=== PATIENT | female | born 1985 | race American Indian/Alaskan Native ===

== ENCOUNTER 2020-03-22 23:44 | Emergency (ER) | payer SELFPAY ==
[2020-03-22 23:54] VITALS: BP 120/74
[2020-03-23 00:55] LABS: Basophils % (Auto) 0.5 % (0.0-1.8); Eosinophils # (Auto) 0.1 K/mm3 (0.0-0.4); Eosinophils % (Auto) 1.6 % (0.0-4.3); Hematocrit 36.1 % (30.3-42.9); Hemoglobin 11.7 gm/dl (10.1-14.3); Lymphocytes # (Auto) 2.2 K/mm3 (1.2-5.4); Lymphocytes % (Auto) 47.5 % (13.4-35.0); Mean Corpuscular HGB Conc 32 % (30-34); Monocytes # (Auto) 0.5 K/mm3 (0.0-0.8); Monocytes % (Auto) 9.8 % (0.0-7.3); Platelet Count 245 K/mm3 (140-440); Red Blood Count 5.51 M/mm3 (3.65-5.03); Red Cell Distribution Width 15.6 % (13.2-15.2)
[2020-03-23 01:08] LABS: Mean Corpuscular Volume 66 fl (79-97)
[2020-03-23 01:16] LABS: Alanine Aminotransferase 14 units/L (7-56); Albumin 4.3 g/dL (3.9-5); BUN/Creatinine Ratio 12; Blood Urea Nitrogen 12 mg/dL (7-17); Hemolysis Index 3
[2020-03-23 01:43] LABS: Bacteria,Urine 1+ /HPF (Negative); Bilirubin,Urine NEG (Negative); Blood,Urine NEG (Negative); Color,Urine Yellow (Yellow); Mucus,Urine FEW /HPF; Protein,Urine <15 mg/dL mg/dL (Negative)
--- NOTE | 2020-03-23 04:01 | Emergency Department Report ---
ED General Adult HPI - General Chief complaint: Dizziness Stated complaint: WEAKNESS/DIZZINESS Source: patient Mode of arrival: Ambulatory Limitations: No Limitations - History of Present Illness Initial comments: Patient is a 35-year-old -[place] female with a history of chronic anxiety who presents to the ED with complaint of acute onset intermittent lightheadedness, dry throat, chest tightness and tingling sensation diffusely for the last 8 hours intermittently. Patient states that she has had the symptoms on and off for the last 3 months and that she has never been diagnosed officially with anxiety. Patient states that the throat dryness but gets better when she drinks water. Patient denies chest pain, shortness of breath, dizziness, syncope, headache, fever, chills, cough, nausea, vomiting, diarrhea, seizures, change in vision, vaginal bleeding or abdominal pain. MD Complaint: anxiety, lightheadedness -: Gradual, month(s) (3) Location: head, chest Radiation: non-radiation Severity scale (0 -10): 0 Quality: dull Consistency: intermittent Improves with: none Worsens with: none Associated Symptoms: denies other symptoms, loss of appetite, malaise, shortness of breath, other (Chest tightness, lightheadedness). denies: confusion, chest pain, cough, diaphoresis, fever/chills, headaches, nausea/vomiting, rash, seizure Treatments Prior to Arrival: none - Related Data Previous Rx's Medication Instructions Recorded Last Taken Type Butalb/Acetamin/Caff 50-325-40 1 tab PO Q6HR PRN #12 tab 08/17/18 Unknown Rx [Fioricet] Sulfamethoxazole/Trimethoprim 1 each PO BID #14 tablet 08/17/18 Unknown Rx [Bactrim DS TAB] hydrOXYzine PAMOATE [Vistaril] 25 mg PO Q8HR PRN #30 capsule 03/23/20 Unknown Rx Allergies Allergy/AdvReac Type Severity Reaction Status Date / Time No Known Allergies Allergy Verified 08/16/18 23:05 ED Review of Systems ROS: Stated complaint: WEAKNESS/DIZZINESS Other details as noted in HPI Constitutional: malaise. denies: chills, fever Eyes: denies: eye pain, eye discharge, vision change ENT: other. denies: ear pain, throat pain Respiratory: shortness of breath. denies: cough, wheezing Cardiovascular: chest pain (Chest tightness). denies: palpitations Endocrine: no symptoms reported Gastrointestinal: denies: abdominal pain, nausea, vomiting, diarrhea Genitourinary: denies: urgency, dysuria, discharge Musculoskeletal: myalgia, other (Diffuse musculoskeletal tingling sensations). denies: back pain, joint swelling, arthralgia Skin: denies: rash, lesions Neurological: other (Lightheadedness). denies: headache, weakness, paresthesias Psychiatric: anxiety. denies: depression Hematological/Lymphatic: denies: easy bleeding, easy bruising ED Past Medical Hx - Past Medical History Hx Psychiatric Treatment: Yes (Anxiety) - Surgical History Additional Surgical History: x5 - Social History Smoking Status: Never Smoker Substance Use Type: None - Medications Home Medications: Home Medications Medication Instructions Recorded Confirmed Last Taken Type Butalb/Acetamin/Caff 50-325-40 1 tab PO Q6HR PRN #12 tab 08/17/18 Unknown Rx [Fioricet] Sulfamethoxazole/Trimethoprim 1 each PO BID #14 tablet 08/17/18 Unknown Rx [Bactrim DS TAB] hydrOXYzine PAMOATE [Vistaril] 25 mg PO Q8HR PRN #30 capsule 03/23/20 Unknown Rx ED Physical Exam - General Limitations: No Limitations General appearance: alert, in no apparent distress - Head Head exam: Present: atraumatic, normocephalic, normal inspection - Eye Eye exam: Present: normal appearance, PERRL, EOMI Pupils: Present: normal accommodation - ENT ENT exam: Present: normal exam, normal orophraynx, mucous membranes moist, TM's normal bilaterally, normal external ear exam - Neck Neck exam: Present: normal inspection, full ROM - Respiratory Respiratory exam: Present: normal lung sounds bilaterally. Absent: respiratory distress, wheezes, chest wall tenderness, accessory muscle use, decreased breath sounds, prolonged expiratory - Cardiovascular Cardiovascular Exam: Present: regular rate, normal rhythm, normal heart sounds. Absent: systolic murmur, diastolic murmur, rubs, gallop - GI/Abdominal GI/Abdominal exam: Present: soft, normal bowel sounds. Absent: tenderness, guarding, hyperactive bowel sounds, hypoactive bowel sounds, organomegaly - Extremities Exam Extremities exam: Present: normal inspection, full ROM, normal capillary refill - Back Exam Back exam: Present: normal inspection, full ROM. Absent: tenderness, CVA tenderness (L), muscle spasm, paraspinal tenderness, vertebral tenderness - Neurological Exam Neurological exam: Present: alert, oriented X3, CN II-XII intact, normal gait, reflexes normal - Psychiatric Psychiatric exam: Present: normal affect, normal mood, anxious - Skin Skin exam: Present: warm, dry, intact, normal color. Absent: rash ED Course Vital Signs 03/22/20 23:54 Temperature 98.3 F Pulse Rate 75 Respiratory 20 Rate Blood Pressure 120/74 O2 Sat by Pulse 100 Oximetry ED Medical Decision Making - Lab Data Result diagrams: 03/23/20 00:28 03/23/20 00:28 - Medical Decision Making This is a 35-year-old -[place] female with a history of chronic anxiety who presents to the ED with complaint of acute onset intermittent lightheadedness, dry throat, chest tightness and tingling sensation diffusely for the last 8 hours intermittently. Patient states that she has had the symptoms on and off for the last 3 months and that she has never been diagnosed officially with anxiety. Patient states that the throat dryness but gets better when she drinks water. In the ED, patient is alert and oriented x3 and is not in distress. Lab test results were reviewed and are all nonactionable. Based on the history and physical exam findings, and test results, patient symptoms a re likely due to panic attack and anxiety. Patient was discharged home on medications for anxiety and advised to return to the ED immediately if symptoms get worse, otherwise follow-up with her primary care physician in 7 to 10 days for reevaluation. - Differential Diagnosis anxiety; dehydration; panic attack Critical care attestation.: If time is entered above; I have spent that time in minutes in the direct care of this critically ill patient, excluding procedure time. ED Disposition Clinical Impression: Anxiety as acute reaction to exceptional stress Disposition: DC-01 TO HOME OR SELFCARE Is pt being admited?: No Does the pt Need Aspirin: No Condition: Stable Instructions: Generalized Anxiety Disorder (ED) Additional Instructions: Your symptoms are likely due to acute anxiety. Therefore take medication with food, drink plenty of fluids and follow-up with your primary care physician in 7 to 10 days for reevaluation. Return to the ED immediately if symptoms get worse. Prescriptions: hydrOXYzine PAMOATE [Vistaril] 25 mg PO Q8HR PRN #30 capsule PRN Reason: Anxiety Referrals: [facility] [Provider Group] - 3-5 Days Time of Disposition: 04:03 Print Language: CITIZEN OF [place]
== END 2020-03-23 04:10 | disposition home or self-care (01) ==
LOC: ED 23:44
DX: F41.9 Anxiety disorder, unspecified (principal)
CPT/HCPCS: 36415; 80053; 81001; 84703; 85025; 99283

== ENCOUNTER 2020-06-08 19:14 | Emergency (ER) | payer SELFPAY ==
[2020-06-08 20:05] VITALS: BP 110/68
--- NOTE | 2020-06-08 23:00 | Emergency Department Report ---
ED General Adult HPI - General Chief complaint: Extremity Injury, Upper Stated complaint: ARM TIGHTNESS THROAT PROBLEM Time Seen by Provider: 06/08/20 22:23 Source: patient Mode of arrival: Ambulatory Limitations: No Limitations - Related Data Previous Rx's Medication Instructions Recorded Last Taken Type Butalb/Acetamin/Caff 50-325-40 1 tab PO Q6HR PRN #12 tab 08/17/18 Unknown Rx [Fioricet] Sulfamethoxazole/Trimethoprim 1 each PO BID #14 tablet 08/17/18 Unknown Rx [Bactrim DS TAB] hydrOXYzine PAMOATE [Vistaril] 25 mg PO Q8HR PRN #30 capsule 03/23/20 Unknown Rx Allergies Allergy/AdvReac Type Severity Reaction Status Date / Time No Known Allergies Allergy Verified 08/16/18 23:05 ED Review of Systems ROS: Stated complaint: ARM TIGHTNESS THROAT PROBLEM Other details as noted in HPI ED Past Medical Hx - Past Medical History Previous Medical History?: Yes Hx Psychiatric Treatment: Yes (Anxiety) - Surgical History Past Surgical History?: Yes Additional Surgical History: x5 - Social History Smoking Status: Never Smoker Substance Use Type: None - Medications Home Medications: Home Medications Medication Instructions Recorded Confirmed Last Taken Type Butalb/Acetamin/Caff 50-325-40 1 tab PO Q6HR PRN #12 tab 08/17/18 Unknown Rx [Fioricet] Sulfamethoxazole/Trimethoprim 1 each PO BID #14 tablet 08/17/18 Unknown Rx [Bactrim DS TAB] hydrOXYzine PAMOATE [Vistaril] 25 mg PO Q8HR PRN #30 capsule 03/23/20 Unknown Rx ED Physical Exam - General Limitations: No Limitations ED Course Vital Signs 06/08/20 19:53 Temperature 98.1 F Pulse Rate 67 Respiratory 16 Rate Blood Pressure 110/68 O2 Sat by Pulse 100 Oximetry Critical care attestation.: If time is entered above; I have spent that time in minutes in the direct care of this critically ill patient, excluding procedure time. ED Disposition Condition: Stable Referrals: PRIMARY CARE, [Primary Care Provider] - 3-5 Days
--- NOTE | 2020-06-08 23:17 | Emergency Department Report ---
ED General Adult HPI - General Chief complaint: Extremity Injury, Upper Stated complaint: ARM TIGHTNESS THROAT PROBLEM Time Seen by Provider: 06/08/20 22:23 Source: patient Mode of arrival: Ambulatory Limitations: No Limitations - History of Present Illness Initial comments: 35-year-old -[place] female patient presents with complaints of intermi ttent episodes of left arm tightness, throat tightness, and diffuse tingling sensation all over her body x 6 months. Patient states that the episodes last only a few minutes and normally occur when she gets home from work and is feeling overwhelmed. She denies any current symptoms, chest pain, dizziness, headache, vision changes, confusion, memory loss, difficulty with speech/ambulation, sore throat, cough, shortness of breath, leg pain/swelling, or fever/chills/sweats. Patient states these are the same symptoms she was seen for here in the ED 03/22/2020 and that the episodes are becoming more frequent and are concerning her. She states she was diagnosed with anxiety. She denies having followed up with a PCP. - Related Data Previous Rx's Medication Instructions Recorded Last Taken Type Butalb/Acetamin/Caff 50-325-40 1 tab PO Q6HR PRN #12 tab 08/17/18 Unknown Rx [Fioricet] Sulfamethoxazole/Trimethoprim 1 each PO BID #14 tablet 08/17/18 Unknown Rx [Bactrim DS TAB] hydrOXYzine PAMOATE [Vistaril] 25 mg PO Q8HR PRN #30 capsule 06/08/20 Unknown Rx Allergies Allergy/AdvReac Type Severity Reaction Status Date / Time No Known Allergies Allergy Verified 08/16/18 23:05 ED Review of Systems ROS: Stated complaint: ARM TIGHTNESS THROAT PROBLEM Other details as noted in HPI Constitutional: denies: chills, diaphoresis, fever, malaise, weakness ENT: denies: throat pain Respiratory: denies: cough, shortness of breath Cardiovascular: denies: chest pain, palpitations Endocrine: denies: excessive sweating, flushing Gastrointestinal: denies: abdominal pain Genitourinary: denies: urgency, dysuria, frequency, hematuria Musculoskeletal: denies: joint swelling Skin: denies: rash, lesions, change in color Neurological: denies: headache, abnormal gait Psychiatric: anxiety. denies: depression, auditory hallucinations, visual hallucinations ED Past Medical Hx - Past Medical History Previous Medical History?: Yes Hx Psychiatric Treatment: Yes (Anxiety) - Surgical History Past Surgical History?: Yes Additional Surgical History: x5 - Social History Smoking Status: Never Smoker Substance Use Type: None - Medications Home Medications: Home Medications Medication Instructions Recorded Confirmed Last Taken Type Butalb/Acetamin/Caff 50-325-40 1 tab PO Q6HR PRN #12 tab 08/17/18 Unknown Rx [Fioricet] Sulfamethoxazole/Trimethoprim 1 each PO BID #14 tablet 08/17/18 Unknown Rx [Bactrim DS TAB] hydrOXYzine PAMOATE [Vistaril] 25 mg PO Q8HR PRN #30 capsule 06/08/20 Unknown Rx ED Physical Exam - General Limitations: No Limitations General appearance: alert, in no apparent distress, obese - Head Head exam: Present: atraumatic, normocephalic - Eye Eye exam: Present: normal appearance. Absent: scleral icterus - ENT ENT exam: Present: normal orophraynx, mucous membranes moist - Neck Neck exam: Present: normal inspection - Respiratory Respiratory exam: Present: normal lung sounds bilaterally. Absent: respiratory distress, chest wall tenderness - Cardiovascular Cardiovascular Exam: Present: regular rate, normal rhythm. Absent: systolic murmur, diastolic murmur, rubs, gallop - GI/Abdominal GI/Abdominal exam: Present: soft. Absent: tenderness - Extremities Exam Extremities exam: Present: normal inspection, full ROM. Absent: joint swelling, calf tenderness - Back Exam Back exam: Present: normal inspection - Neurological Exam Neurological exam: Present: alert, oriented X3, normal gait - Psychiatric Psychiatric exam: Present: normal affect, normal mood. Absent: suicidal ideation - Skin Skin exam: Present: warm, dry, intact, normal color. Absent: rash, cyanosis, diaphoretic, ecchymosis ED Course Vital Signs 06/08/20 19:53 Temperature 98.1 F Pulse Rate 67 Respiratory 16 Rate Blood Pressure 110/68 O2 Sat by Pulse 100 Oximetry ED Medical Decision Making - EKG Data EKG shows normal: sinus rhythm Rate: normal - EKG Data Interpretation: normal EKG - Medical Decision Making 35-year-old -[place] female patient presents with complaints of intermittent episodes of left arm tightness, throat tightness, and diffuse tingling sensation all over her body x 6 months. Patient states that the episodes last only a few minutes and normally occur when she gets home from work and is feeling overwhelmed. She denies any current symptoms, chest pain, dizziness, headache, vision changes, confusion, memory loss, difficulty with speech/ambulation, sore throat, cough, shortness of breath, leg pain/swelling, or fever/chills/sweats. Patient states these are the same symptoms she was seen for here in the ED 03/22/2020 and that the episodes are becoming more frequent and are concerning her. She states she was diagnosed with anxiety. She denies having followed up with a PCP. EKG is normal. No abnormalities are noted on physical exam. Recommend patient follow-up with PCP for further evaluation and treatment of her anxiety. We will try hydroxyzine as needed for now. Her vitals are normal, she is well- appearing, and she is stable for discharge home. Discussed strict return precautions in detail with patient who verbalized understanding. Critical care attestation.: If time is entered above; I have spent that time in minutes in the direct care of this critically ill patient, excluding procedure time. ED Disposition Clinical Impression: Anxiety attack Disposition: DC-01 TO HOME OR SELFCARE Is pt being admited?: No Condition: Stable Instructions: Anxiety (ED) Prescriptions: hydrOXYzine PAMOATE [Vistaril] 25 mg PO Q8HR PRN #30 capsule PRN Reason: Anxiety Referrals: [facility] [Provider Group] - 2-3 Days Forms: Work/School Release Form(ED)
== END 2020-06-08 23:25 | disposition home or self-care (01) ==
LOC: ED 19:14
DX: F41.9 Anxiety disorder, unspecified (principal); Z79.899 Other long term (current) drug therapy; Z98.890 Other specified postprocedural states
CPT/HCPCS: 93005; 99282